=== PATIENT | female | born 1965 | race Native Hawaiian/Other Pacific Islander ===

== ENCOUNTER 2016-11-07 08:58 | Outpatient (CLI) | payer OTHER | END 2016-11-07 10:15 | disposition home or self-care (01) | LOC: US 08:58 | DX: R79.89 Other specified abnormal findings of blood chemistry (principal) ==

== ENCOUNTER 2017-02-21 09:52 | Outpatient (CLI) | payer OTHER | END 2017-02-21 18:59 | disposition home or self-care (01) | LOC: LABW 09:52 | DX: M06.4 Inflammatory polyarthropathy (principal); M10.09 Idiopathic gout, multiple sites; Z68.31 Body mass index [BMI] 31.0-31.9, adult | CPT/HCPCS: 36415; 86200 ==

== ENCOUNTER 2022-07-29 11:18 | Outpatient (CLI) | payer OTHER | END 2022-07-29 21:19 | disposition home or self-care (01) | LOC: RAD 11:18 | PROVIDERS: ATTEND Nurse Practitioner Family | DX: M06.4 Inflammatory polyarthropathy (principal); M10.09 Idiopathic gout, multiple sites; M10.9 Gout, unspecified; R70.0 Elevated erythrocyte sedimentation rate; R79.82 Elevated C-reactive protein (CRP) ==

== ENCOUNTER 2022-10-16 08:41 | Outpatient (CLI) | payer OTHER ==
[2022-10-16 10:13] LABS: PLATELET COUNT 250 K/uL (152-353)
[2022-10-16 10:18] LABS: POTASSIUM 4.5 mmol/L (3.6-5.2)
== END 2022-10-16 18:59 | disposition home or self-care (01) ==
LOC: US 08:41
PROVIDERS: ATTEND Internal Medicine Nephrology
DX: N18.32 Chronic kidney disease, stage 3b (principal)
CPT/HCPCS: 36415; 80053; 80074; 81002; 82043; 82306; 82570; 83970; 84100; 84156; 84550; 85027; 85652; 86037; 86140; 86160; 86592; 87535; G0432

== ENCOUNTER 2022-11-25 09:48 | Outpatient (CLI) | payer OTHER | END 2022-11-25 21:20 | disposition home or self-care (01) | LOC: RAD 09:48 | PROVIDERS: ATTEND Nurse Practitioner Family | DX: M06.09 Rheumatoid arthritis without rheumatoid factor, multiple sites (principal); M10.9 Gout, unspecified; R94.4 Abnormal results of kidney function studies; Z79.52 Long term (current) use of systemic steroids; Z79.899 Other long term (current) drug therapy ==

== ENCOUNTER 2023-01-17 10:18 | Outpatient (CLI) | payer OTHER | END 2023-01-17 19:01 | disposition home or self-care (01) | LOC: RAD 10:18 | PROVIDERS: ATTEND Nurse Practitioner Family | DX: M06.09 Rheumatoid arthritis without rheumatoid factor, multiple sites (principal); M06.4 Inflammatory polyarthropathy; M10.9 Gout, unspecified; M54.51 Vertebrogenic low back pain ==